=== PATIENT | male | born 1995 | race Caucasian/White ===

== ENCOUNTER 2020-02-02 09:38 | Emergency (ER) | payer SELFPAY ==
[~2020-02-02] VITALS: Ht 190.5 cm; Wt 100.0 kg
[2020-02-02 09:52] VITALS: TEMP 98.8
[2020-02-02] MEDS ORDERED: ANUSOL-HC2.5% RC (10:35)
[2020-02-02 10:52] VITALS: BP 125/81; PULSE 71
== END 2020-02-02 10:53 | disposition home or self-care (01) ==
LOC: COL.ER 09:38
DX: K60.1 Chronic anal fissure (principal); F17.210 Nicotine dependence, cigarettes, uncomplicated